=== PATIENT | female | born 1960 | race Caucasian/White ===

== ENCOUNTER 2018-12-24 08:35 | Outpatient (RCR) | payer MEDICARE, MEDICAID, SELFPAY ==
[2018-12-24] VITALS (9 sets, daily range): BP systolic 92–104; BP diastolic 50–59; PULSE 62–81; RESP 14–16; TEMP 36.3–37.1; O2SAT 92–100
[2018-12-24 09:33] LABS: Hematocrit 23.5 % (37.0-47.0); Hemoglobin 7.7 g/dL (12.0-15.0)
--- NOTE | 2018-12-24 09:39 | PC.NURSE ---
0923 pt arrived to [facility] for blood transfusion with existing PICC to right upper arm. One port is labeled for TPN, it flushes but does not give and blood return, the second port flushes but gives minimal blood return. Josh labs from a peripheral vein.
[2018-12-24] MEDS: ACETAMINOPHEN 325 MG TABLET 650 MG PO (09:44)
[2018-12-24] MEDS: FUROSEMIDE INJ 40 MG/4 ML VIAL 20 MG IV PUSH (13:09)
== END 2019-03-24 23:59 | disposition home or self-care (01) ==
LOC: ANHCPCTRAN 08:35
PROVIDERS: PCP Family Medicine; Visit Provider Family Medicine
DX: D64.9 Anemia, unspecified (principal)
CPT/HCPCS: 36415; 36430; 85014; 85018; 86850; 86900; 86901; 86920; 96374; A9270; J1940; P9016